=== PATIENT | female | born 1960 | race Two or more races ===

== ENCOUNTER → 2018-07-19 | Outpatient (CLI) | payer BC ==
--- NOTE | 2018-07-19 15:30 | CONS ---
Assessment/Plan Assessment/Plan Hospital Course (Demo Recall) This is a 57-year-old female who had a right total hip arthroplasty more than 20 years ago. She is having groin pain as well as posterior buttock pain. In addition she does have significant lumbar radiculopathy as well as other spine issues complicate the picture. However given her symptoms and radiographs of significant eccentric wear and ostial lysis surrounding the cup as well the greater trochanter I am recommending the patient undergo revision total hip arthroplasty to avoid further wear and possible catastrophic failure in the future. I do have concerns given her recent fevers and chills that infection needs to be ruled out. CBC with differential, ESR, CRP will be ordered. If those results are negative we can proceed with surgery. However those results are positive she will need an aspiration with cell count, culture, alpha defensive. In addition the patient is to bring her previous operative record and the other records she may have as this will assist in her surgery. If there are no signs of infection and the cup is well fixed the first attempt will be made for a simple head liner exchange obtaining the original liner for the cup. If that is not possible secondary to product not being available or inability to determine the cup then the current acetabular component will be explanted with new cup implanted possibly dual mobility given her spinal issues. Follow-up after labs are completed and has old operative records. Consultation Date/Type/Reason Admit Date/Time Date of Consultation: Jul 19, 2018 Reason for Consultation Right hip pain Date/Time of Note DATE: 07/19/18 TIME: 15:18 Hx of Present Illness This is a 57-year-old female presenting to clinic today for right hip pain as well as buttock pain. The hip pain is located in the groin. She had a right total hip done in 1995 in [place]. Patient states she does have some operative records at home that she did not bring with her today. She was doing fine in the hip until the last year. Patient does note some fevers and chills over the last 2 months does not report any other infection. Patient did have an injection to her right greater trochanter bursa last month. Her pain is 78/10 and is described as stabbing and burning. Pain radiates from the groin to the knee. She states she does have numbness and tingling in her legs down to her feet at times. When sitting her leg goes numb she does have history of back problems and deformity as well as 2 surgeries one in 1976 and one in 1989. Patient denies any complications with the initial hip replacement. Denies any dislocation events. Patient can only state that her hip was rubbing [id number] and that is where she needed a hip replacement at age 34. Patient denies fever, chills, shortness of breath, chest pain, nausea/vomiting, constipation, diarrhea, numbness, and tingling. Past Medical History Headaches Visual loss Osteoporosis Past Surgical History Right total hip 1996 Back surgery 1976 and 1989 Hernia surgery x8 Breast surgery Family History Significant Family History: no pertinent family hx Social History Alcohol Use: none Smoking Status: Never smoker Drug Use: none Exam/Review of Systems Exam Vitals Weight: 126 pounds Height: 4 foot 11 inches BMI: 25.4 Temperature: 90.4 Heart Rate: 68 Blood Pressure: 135/70 Respiratory Rate: 12 Exam General: Awake, alert, in no acute distress, pleasant and cooperative Heart: regular rhythm Lungs: breathing comfortably, no tachypnea or dyspnea Musculoskeletal: Well developed female in no apparent distress. Gait demonstrates a Trendelenburg with antalgic components and no short leg component. Standing, the pelvis is not level and supine there is no true leg length discrepancy, tenderness to palpation over the great er enteric bursa. ----- Range of motion: Flexion: 80 Extension: 0 Internal rotation: 30 External rotation: 10 Abduction: 30 Adduction: 10 ----- Sitting there is mild pelvic obliquity. Pain at the extremes of motion of the affected hip. Skin was intact throughout both lower extremities. Sensation intact to light touch in a sural, saphenous, deep peroneal, superficial peroneal, medial and lateral plantar nerve distribution. Neurovascular exam showed 5/5 strength in the abductors, quads, EHL/tibialis anterior/gastroc. Normal and symmetrical pulses were palpated in both the dorsalis pedis and posterior tibial arteries. There is no sign of venous stasis. Imaging Imaging Xrays obtained in clinic today and personally reviewed by myself: AP pelvis and AP/Lat of the right hip demonstrate hip s/p CASIMIRO with hip reduced. Components in good position and alignment. There is significant eccentric wear of the acetabular liner with superior and lateral migration of the femoral head. There is ostial lysis around the acetabulum especially superiorly and inferior medially. No gross loosening of the cup. There is ostial lysis in the greater trochanter especially visible on the lateral view of the hip. No gross loosening of the stem. No fracture. No acute complications. KAYLENE BROWN MD Jul 19, 2018 15:30
--- NOTE | 2018-07-19 22:41 | RADRPT ---
PROCEDURE: XR Right hip and pelvis. CLINICAL INDICATION: Right hip pain. Pelvic pain. Postop. TECHNIQUE: Three views. Frontal pelvis. Frontal and lateral right hip. COMPARISON: No prior studies are available for comparison. FINDINGS: There is no fracture or dislocation. The soft tissues are normal. There is a right hip total arthroplasty which appears satisfactory. Surgical clips are noted in the r ight inguinal region. The left hip is grossly normal. There is no lytic or blastic lesion. The upper pelvis is not completely included on the image. IMPRESSION: 1. Satisfactory postoperative appearance of the right hip. 2. Grossly normal appearance of the left hip. RPTAT: QQ .Rajat Elizondo MD, MD Date Time Electronically viewed and signed by .Rajat Elizondo MD, on 07/19/2018 22:41 .R/
== END | disposition home or self-care (01) ==
LOC: HKI 10:26
PROVIDERS: ATTEND Orthopaedic Surgery Adult Reconstructive Orthopaedic Surgery
DX: M25.551 Pain in right hip (principal); Z96.641 Presence of right artificial hip joint
CPT/HCPCS: 73502; Z7500; G0463

== ENCOUNTER → 2018-07-31 | Outpatient (CLI) | payer BC ==
--- NOTE | 2018-07-31 12:06 | CONS ---
Consult Date/Type/Reason Admit Date/Time Initial Consult Date Date/Time of Note DATE: 07/31/18 TIME: 11:56 Subjective 57-year-old female who follows up today to discuss medical wear and ostial lysis of her right total hip arthroplasty. Last visit ESR, CRP, WBC with differential was ordered. She denies any true symptoms of fevers and chills. She does get feverish and diaphoretic from pain after walking significant distances. She brought in her operative note today. The operative note states surgery was done in August 1998 at [facility]. They state that she had development of dysplasia of the hip. They note significant difficulty with reducing the hip after the total hip arthroplasty and using a -6 head. A 48 mm Ranawat acetabular component was implanted. A lipped liner was used. Femoral stem was a Conchita head stem with a 28 mm cobalt chrome -6 mm head and neck. Patient denies any changes in her symptoms since last visit. Objective Vitals Weight: 126 pound Height: 4 foot 11 inches Temperature: 98.0 Heart Rate: 69 Blood Pressure: 129/58 Respiratory Rate: 12 Exam eneral: Awake, alert, in no acute distress, pleasant and cooperative Heart: regular rhythm Lungs: breathing comfortably, no tachypnea or dyspnea Musculoskeletal: Well developed female in no apparent distress. Gait demonstrates a Trendelenburg with antalgic components and no short leg component. Standing, the pelvis is not level and supine there is no true leg length discrepancy, tenderness to palpation over the g reater enteric bursa. ----- Range of motion: Flexion: 80 Extension: 0 Internal rotation: 30 External rotation: 10 Abduction: 30 Adduction: 10 ----- Sitting there is mild pelvic obliquity. Pain at the extremes of motion of the affected hip. Skin was intact throughout both lower extremities. Sensation intact to light touch in a sural, saphenous, deep peroneal, superficial peroneal, medial and lateral plantar nerve distribution. Neurovascular exam showed 5/5 strength in the abductors, quads, EHL/tibialis anterior/gastroc. Normal and symmetrical pulses were palpated in both the dorsalis pedis and posterior tibial arteries. There is no sign of venous stasis. Results/Medications Results 24 hrs Labs collected on 07/19/2018 ESR: 28 (<30) CRP: 4.1 (<8.0) WBC: 8.2 (3.8-10.8) Hgb: 12.9 (11.7-15.5) Assessment/Plan Hospital Course (Demo Recall) 57-year-old female with ostial lysis mechanical wear right total hip arthroplasty performed almost 20 years ago. She has significant pain and symptoms. At this time am recommending the patient that we proceed with scheduling a revision right total hip arthroplasty. I did spend significant amount of time at least 30 minutes talking with her and her son that the c omplexity of this case. Had a long discussion with the patient that if the appropriate liner and head are still available and the components are well fixed and the hip is stable we will plan for head and liner exchange. Otherwise the patient may need a full revision of the acetabulum which will be challenging secondary to patient's small cup size, lack of bone, history of development of dysplasia of the hip. There are no signs of loosening of the femur on x-ray however it was also discussed the patient that if it is found to be loose intraoperatively that will also need to be revised. Will obtain a preoperative CT scan as well as Judet views of the hip prior to surgery for further evaluation and preoperative planning. We will obtain additional labs including vitamin D levels, total protein, albumin. Follow-up after CT scan Schedule surgery for revision right total hip arthroplasty headliner exchange versus revision acetabular component. KAYLENE BROWN MD Jul 31, 2018 12:05
== END | disposition home or self-care (01) ==
LOC: HKI 10:15
PROVIDERS: ATTEND Orthopaedic Surgery Adult Reconstructive Orthopaedic Surgery
DX: Q65.89 Other specified congenital deformities of hip (principal); Z96.641 Presence of right artificial hip joint
CPT/HCPCS: G0463

== ENCOUNTER → 2018-09-07 | Outpatient (CLI) | payer BC ==
--- NOTE | 2018-09-07 21:52 | CONS ---
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 Last visit ESR, CRP, WBC with differential was ordered and normal. She returns today to review CMP and Vit D levels and CT scan right hip. She denies any true symptoms of fevers and chills. She does get feverish and diaphoretic from pain after walking significant distances. She brought in her operative note today. The operative note states surgery was done in August 1998 at [facility]. They state that she had development of dysplasia of the hip. They note significant difficulty with reducing the hip after the total hip arthroplasty and using a -6 head. A 48 mm Ranawat acetabular component was implanted. A lipped liner was used. Femoral stem was a Conchita head stem with a 28 mm cobalt chrome -6 mm head and neck. Other than increased pain the patient denies any changes in her symptoms since last visit. Objective Exam Exam General: Awake, alert, in no acute distress, pleasant and cooperative Heart: regular rhythm Lungs: breathing comfortably, no tachypnea or dyspnea Musculoskeletal: Well developed female in no apparent distress. Gait demonstrates a Trendelenburg with antalgic components and no short leg component. Standing, the pelvis is not level and supine there is no true leg length discrepancy, tenderness to palpation over the greater enteric bursa. ----- Range of motion: Flexion: 80 Extension: 0 Internal rotation: 30 External rotation: 10 Abduction: 30 Adduction: 10 ----- Sitting there is mild pelvic obliquity. Pain at the extremes of motion of the affected hip. Skin was intact throughout both lower extremities. Sensation intact to light touch in a sural, saphenous, deep peroneal, superficial peroneal, medial and lateral plantar nerve distribution. Neurovascular exam showed 5/5 strength in the abductors, quads, EHL/tibialis anterior/gastroc. Normal and symmetrical pulses were palpated in both the dorsalis pedis and posterior tibial arteries. There is no sign of venous stasis. Results/Medications Results 24 hrs Labs collected on 07/19/2018 ESR: 28 (<30) CRP: 4.1 (<8.0) WBC: 8.2 (3.8-10.8) Hgb: 12.9 (11.7-15.5) Labs collected on 07/31/2018 Albumin: 4.2 (3.6-5.1) Total protein: 6.9 (6.1-8.1) Vitamin D: 29 (30-100) Imaging AP pelvis and 2 today views were obtained today. They show well placed and positioned total hip arthroplasty on the right side. There is significant eccentric wear. There is ostial lysis around the proximal femoral stem as well as the cup. No obvious signs of loosening. CT of the right hip was personally reviewed. Findings likely representing osteolysis involving the acetabular component, proximal femoral stem. There is eccentric wear. Assessment/Plan Hospital Course (Demo Recall) 57-year-old female with osteolysis mechanical wear right total hip arthroplasty performed almost 20 years ago. She has significant pain and symptoms. At this time am recommending the patient that we proceed with scheduling a revision right total hip arthroplasty. I did spend significant amount of time at least 30 minutes talking with her and her son that the complexity of this case. Had a long discussion with the patient that if the appropriate liner and head are still available and the components are well fixed and the hip is stable we will plan for head and liner exchange. Otherwise the patient may need a full revision of the acetabulum which will be challenging secondary to patient's small cup size, lack of bone, history of development of dysplasia of the hip. There are no signs of loosening of the femur on x-ray or CT scan, however it was also discussed the patient that if it is found to be loose intraoperatively that will also need to be revised. KAYLENE BROWN MD September 07, 2018 21:52
--- NOTE | 2018-09-08 11:14 | RADRPT ---
PROCEDURE: XR Pelvis and bilateral hips CLINICAL INDICATION: Pelvic pain. Bilateral hip pain. TECHNIQUE: 3 views of the pelvis and bilateral hips are available for review. COMPARISON: DR BRITT 07/19/2018 FINDINGS: Right hip prosthesis, in anatomic alignment. The left hip is unremarkable. Mild degenerative entheso troy of the lower lumbar spine. The remaining osseous structures are unremarkable. No acute fracture or dislocation. No radiopaque foreign body. The sacroiliac joints are symmetrically unremarkable. Mi ld chronic degenerative osteoarthrosis of the left hip joint space. Numerous surgical clips overlappi ng the right groin region. IMPRESSION: 1. Right hip prosthesis in anatomic alignment, stable. 2. Stable surgical clips in the right inguinal groin region. 3. Otherwise, stable and unremarkable x-ray pelvis series. 4. Degenerative enthesopathy of the lower lumbar spine. RPTAT: HMJB .Mickey Rebolledo MD, Date Time Electronically viewed and signed by .Mickey Rebolledo MD, MD on 09/08/2018 11:13 .B/
== END | disposition home or self-care (01) ==
LOC: HKI 14:51
PROVIDERS: ATTEND Orthopaedic Surgery Adult Reconstructive Orthopaedic Surgery
DX: M89.551 Osteolysis, right thigh (principal); Z96.641 Presence of right artificial hip joint
CPT/HCPCS: 72170; Z7500; G0463

== ENCOUNTER 2018-11-14 07:30 | Inpatient (IN) | payer BC ==
[~2018-11-14] VITALS: Ht 149.9 cm; Wt 59.2 kg
[~2018-11-14 07:30] MED LIST: ASPI-1044 PO; Acetaminophen PO; GABA300C16 PO; OXYC-481 PO
[2018-11-21 11:54] VITALS: Ht 149.9 cm; Wt 59.2 kg
[2018-11-28] VITALS (29 sets, daily range): BP systolic 91–147; BP diastolic 46–79; PULSE 52–82; RESP 13–20
[2018-11-28] MEDS ORDERED: CELECOXIB 200 MG CAP PO SCH (06:00)
[2018-11-28] MEDS ORDERED: TRANEXAMIC ACID 1GM/100ML(PMX) 100 ML AT CLOSURE X1 IVPB ONE (06:00)
[2018-11-28] MEDS ORDERED: ACETAMINOPHEN 1000MG/100ML IV 100 ML IVPB ONE (06:00)
[2018-11-28] MEDS ORDERED: CEFAZOLIN 2 GM/50 ML (PMX) 50 ML (FOR WT < 120 KG) IVPB ONE (06:00)
[2018-11-28] MEDS ORDERED: GABAPENTIN 300 MG CAP PO SCH (06:00)
[2018-11-28] MEDS ORDERED: LANSOPRAZOLE 30 MG CAP PO ONE (06:00)
[2018-11-28] MEDS ORDERED: TRANEXAMIC ACID 1GM/100ML(PMX) 100 ML AT INCISION X1 IVPB ONE (06:00)
[2018-11-28] MEDS ORDERED: PANTOPRAZOLE (EC) 40 MG TAB PO SCH (06:00)
[2018-11-28] MEDS ORDERED: ACETAMINOPHEN 500 MG TAB PO ONE (06:00)
[2018-11-28] MEDS ORDERED: LACTATED RINGER'S 1,000 ML IV SCH (06:00)
[2018-11-28] MEDS ORDERED: ONDANSETRON 4 MG INJ IV ONE (06:00)
[2018-11-28] MEDS ORDERED: TRANEXAMIC ACID 1GM/100ML(PMX) 200 ML ONE (06:50)
--- NOTE | 2018-11-28 07:15 | HPN ---
Date/Time of Note Date/Time of Note DATE: 11/28/18 TIME: 07:14 Interval H&P Admission Note Pt. seen H&P reviewed: No system changes Patient denies fever, chills, shortness of breath, chest pain, nausea/vomiting, constipation, diarrhea, numbness, and tingling. MUSCULOSKELETAL: Right lower extremity Skin intact. Well-healed posteriolateral hip incision Sensation is decreased to light touch to the superficial peroneal nerve dis tribution. Sensation intact to light touch in a sural, saphenous, deep peroneal, medial and lateral plantar nerve distribution. Motor is intact, patient able to dorsiflex and plantarflex ankle and extend and flex great toe. Dorsalis Pedis pulse +2, Brisk capillary refill. Compartments are soft. Calves non-tender to palpation bilaterally. KAYLENE BROWN MD Nov 28, 2018 07:15
--- NOTE | 2018-11-28 07:29 | PREAC ---
Date/Time of Note Date/Time of Note DATE: 11/28/18 TIME: 07:27 Anesthesia Eval and Record Evaluation Time Pre-Procedure Interview DATE: 11/28/18 TIME: 07:27 Age 58 Sex female NPO: 8 hrs Preoperative diagnosis Right Hip Pain and OA Planned procedure Revision Right Total Hip Replacement Past Medical History Past Medical History: Includes Cardio: Dyslipidemia Musculoskeletal: Osteoarthritis Surgery & Anesthesia Issues No known issue Meds Anticoagulation: No Beta Colt within 24 hr: No Reason Beta Colt not given: Pt. not on B-Colt No Active Prescriptions or Reported Meds Current Medications Lactated Ringer's 1,000 ml @ 25 mls/hr Q24H IV Last administered on 11/28/18at 06:29; Admin Dose 25 MLS/HR; Start 11/28/18 at 06:00; Stop 11/28/18 at 23:00 Meds reviewed: Yes Allergies Coded Allergies: vancomycin (Verified Adverse Reaction, Unknown, SUAD SYNDROME, 11/27/18) Allergies Reviewed: Yes Labs/Studies Labs Reviewed: Reviewed by anesthesiologist Blood Bank Test 11/28/18 06:13 Antibody Screen NEGATIVE Blood Product Summary Counts Blood Type O POSITIVE Crossmatch Red Blood Cells test: N/A Studies: ECG (NSR), CXR (no active pulmonary Disease.) Pre-procedure Exam Last vitals Vital Signs Date Temp Pulse Resp B/P (MAP) Pulse Ox O2 O2 Flow FiO2 Time Delivery Rate 11/28/18 97.2 62 18 147/79 98 Room Air 06:46 (101) Airway: Adequate mouth opening, Adequate thyromental dist Mallampati: Mallampati II Teeth: Normal Lung: Normal Heart: Normal ASA Physical Status ASA physical status: 2 Emergency: None Planned Anesthetic General/MAC: ETT Neuraxial: Spinal Nerve block: Other (Right Fascia Iliaca Block.) Planned Pain Management Sub-arachniod narcotics, Single shot nerve block, Parenteral pain med Pre-operative Attestations Prior to commencing anesthesia and surgery, the patient was re-evaluated, there was verification of: *The patient's identity *The results of appropriate recent lab work and preoperative vital signs *The above evaluation not changing prior to induction *Anesthetic plan, risk benefits, alternative and complications discussed with patient/family; questions answered; patient/family understands, accepts and wish es to proceed. JACKSON PARMAR MD Nov 28, 2018 07:29
[2018-11-28] MEDS ORDERED: PROPOFOL 20 ML ONE (07:40)
[2018-11-28] MEDS ORDERED: MIDAZOLAM 1 MG/ML 2 ML INJ ONE (07:40)
[2018-11-28] MEDS ORDERED: ROCURONIUM 50 MG INJ ONE (07:40)
[2018-11-28] MEDS ORDERED: SEVOFLURANE 15 MIN ONE (07:40)
[2018-11-28] MEDS ORDERED: morphine SULFATE/PF (10 MG/10 ML) INJ ONE (07:40)
[2018-11-28] MEDS ORDERED: ROPIVACAINE 0.5 % 30 ML VIAL ONE (07:40)
[2018-11-28] MEDS ORDERED: CEFAZOLIN 1 GM INJ ONE (07:40)
[2018-11-28] MEDS ORDERED: PHENYLephrine (100 MCG/ML) 10ML SYG ONE (08:33)
[2018-11-28] MEDS ORDERED: EPHEDrine 25 MG/5 ML SYG ONE (08:33)
[2018-11-28] MEDS ORDERED: POLYMYXIN/BACITRACIN 1L IRRIG ONE (10:59)
[2018-11-28] MEDS ORDERED: DIPHENHYDRAMINE 50 MG INJ IV PRN ×2 (11:30→13:00)
[2018-11-28] MEDS ORDERED: METOCLOPRAMIDE 10 MG INJ IV PRN (11:30)
[2018-11-28] MEDS ORDERED: EPHEDrine 25 MG/5 ML SYG IV PRN (11:30)
[2018-11-28] MEDS ORDERED: OXYCODONE/ACETAMINOPHEN (5/325) TAB PO PRN ×2 (11:30)
[2018-11-28] MEDS ORDERED: HYDROmorphONE 1 MG/5 ML IV SYRINGE IV PRN ×3 (11:30)
[2018-11-28] MEDS ORDERED: LABETALOL HCL 20MG INJ IV PRN (11:30)
[2018-11-28] MEDS ORDERED: ONDANSETRON 4 MG INJ IV PRN (11:30)
[2018-11-28] MEDS ORDERED: hydrALAzine 20 MG INJ IV PRN (11:30)
[2018-11-28] MEDS ORDERED: MEPERIDINE 25 MG INJ IV PRN (11:30)
[2018-11-28] MEDS ORDERED: FENTAnyl 50 MCG/ML VIAL IV PRN ×3 (11:30)
[2018-11-28] MEDS ORDERED: KETOROLAC 30 MG INJ ONE (11:32)
[2018-11-28] MEDS ORDERED: DEXAMETHASONE 4 MG/ML 5 ML INJ ONE (11:32)
[2018-11-28] MEDS ORDERED: SUGAMMADEX SODIUM 200 MG/2 ML VIAL IV ONE (11:32)
[2018-11-28] MEDS ORDERED: ONDANSETRON 4 MG INJ ONE (11:32)
[2018-11-28] MEDS ORDERED: METOCLOPRAMIDE 10 MG INJ ONE (11:32)
--- NOTE | 2018-11-28 12:30 | PAC ---
Date/Time of Note Date/Time of Note DATE: 11/28/18 TIME: 12:30 Post-Anesthesia Notes Post-Anesthesia Note Last documented vital signs Vital Signs Date Temp Pulse Resp B/P (MAP) Pulse Ox O2 O2 Flow FiO2 Time Delivery Rate 11/28/18 98.1 62 18 147/79 98 Room Air 12:26 (101) Activity: WNL Respiratory function: WNL Cardiovascular function: WNL Mental status: Baseline Pain reasonably controlled: Yes Hydration appropriate: Yes Nausea/Vomiting absent: Yes JACKSON PARMAR MD Nov 28, 2018 12:30
[2018-11-28] MEDS: LACTATED RINGER'S 1,000 ML IV SCH ×2 (12:35→20:45)
[2018-11-28] MEDS ORDERED: NALOXONE (0.4 MG/ML) INJ IV PRN (13:00)
[2018-11-28] MEDS ORDERED: NA PHOSPHATE/BIPHOS 133 ML ENEMA PR PRN (13:00)
[2018-11-28] MEDS ORDERED: BETHANECHOL 25 MG TAB PO PRN (13:00)
[2018-11-28] MEDS ORDERED: DOCUSATE SODIUM 100 MG CAP PO ONE (13:00)
[2018-11-28] MEDS ORDERED: oxyCODONE 5 MG TAB PO PRN ×3 (13:00)
[2018-11-28] MEDS ORDERED: BISACODYL 10 MG SUPP PR PRN (13:00)
[2018-11-28] MEDS ORDERED: NACL 0.9% 3 ML SYG IV SCH (13:00)
[2018-11-28] MEDS ORDERED: MAGNESIUM HYDROXIDE 30ML CUP PO PRN (13:00)
[2018-11-28] MEDS ORDERED: SENNA/DOCUSATE NA (8.6MG/50MG) TAB PO PRN (13:00)
[2018-11-28] MEDS ORDERED: HYDROmorphONE 1 MG/ML SYG IV PRN (13:00)
[2018-11-28] MEDS: CEFAZOLIN 2 GM/50 ML (PMX) 50 ML IVPB SCH ×2 (13:08→20:44)
--- NOTE | 2018-11-28 13:40 | CONS ---
Assessment/Plan Assessment/Plan Hospital Course (Demo Recall) SUBJECTIVE: Status post right hip revision surgery. No acute distress. OBJECTIVE: Vital signs-see below PHYSICAL EXAM: Constitutional: Adequately built,not in acute distress. HEENT: Head atraumatic and normocephalic. Eyes: Extraocular muscles intact. Anicteric sclerae. Pupils equal bilaterally, reactive to light. NECK: Supple without lymph node. CHEST: Clear and good breath sounds equally. No wheezing. No rhonchi. HEART: S1, S2. Regular rate and rhythm. ABDOMEN: Soft/non tender with no rebound tenderness. Bowel sounds were present. EXTREMITIES: Intact postop dressing on right hip. No bruising/hematoma noted. Pulses palpable. No cyanosis, clubbing or edema. NEUROLOGIC: Alert and oriented x3. No focal deficit. No sensory deficit. PSYCHOSOCIAL: No signs of depression. INTEGUMENTARY: No open wounds. ASSESSMENT AND PLAN:58 yo F admitted followed by revision right hip replacement. Status post revision right hip replacement -Postoperative weightbearing, anticoagulation per orthopedics team. Dyslipidemia -obtain home meds and will continue -lipid panel DVT prophylaxis: Aspirin twice a day per orthopedic PUD prophylaxis: PPI Thank you for allowing us to partake in the care of this pleasant lady. Patient was seen in collaboration with Dr. Edouard. Consultation Date/Type/Reason Admit Date/Time Nov 28, 2018 at 05:39 Type of Consult Hospitalist medicine Reason for Consultation Postoperative medical management Requesting Provider: KAYLENE BROWN MD Date/Time of Note DATE: 11/28/18 TIME: 13:37 Hx of Present Illness 58-year-old female with a history of right hip placement about 20 years ago at [facility], brought in for revision right hip replacement. Hospitalist consultation was requested postoperatively. Patient did undergo revision right total hip replacement surgery with under general anesthesia. Patient was seen in recovery room. Denies any chest pain, palpitation, shortness of breath, nausea, vomiting, abdominal pain, dizziness, numbness, fever, chills or other constitutional symptoms. She is currently in a sleeping mode.. Vital signs stable. A 12 point review of system was assessed and is negative other than what is mentioned in the HPI. Past Medical History See HPI Medications Current Medications Lactated Ringer's 1,000 ml @ 25 mls/hr Q24H IV Last administered on 11/28/18at 06:29; Admin Dose 25 MLS/HR; Start 11/28/18 at 06:00; Stop 11/28/18 at 23:00 Hydromorphone HCl (Dilaudid) 0.2 mg PACU PRN IV MILD PAIN 1-3; Start 11/28/18 at 11:30; Stop 11/28/18 at 16:00 Hydromorphone HCl (Dilaudid) 0.4 mg PACU PRN IV MOD PAIN 4-6; Start 11/28/18 at 11:30; Stop 11/28/18 at 16:00 Hydromorphone HCl (Dilaudid) 0.6 mg PACU PRN IV SEVERE PAIN 7-10; Start 11/28/18 at 11:30; Stop 11/28/18 at 16:00 Fentanyl (Sublimaze) 25 mcg PACU ORDER PRN IV MILD PAIN 1-3; Start 11/28/18 at 11:30; Stop 11/28/18 at 16:00 Fentanyl (Sublimaze) 50 mcg PACU ORDER PRN IV MOD PAIN 4-6; Start 11/28/18 at 11:30; Stop 11/28/18 at 16:00 Fentanyl (Sublimaze) 75 mcg PACU ORDER PRN IV SEVERE PAIN 7-10; Start 11/28/18 at 11:30; Stop 11/28/18 at 16:00 Oxycodone/ Acetaminophen (Percocet (5/ 325)) 1 tab PACU ORDER PRN PO .PAIN 1-5; Start 11/28/18 at 11:30; Stop 11/28/18 at 16:00 Oxycodone/ Acetaminophen (Percocet (5/ 325)) 2 tab PACU ORDER PRN PO .PAIN 6-10; Start 11/28/18 at 11:30; Stop 11/28/18 at 16:00 Ondansetron HCl (Zofran Inj) 4 mg PACU ORDER PRN IV NAUSEA/VOMITING; Start 11/28/18 at 11:30; Stop 11/28/18 at 16:00 Metoclopramide HCl (Reglan) 10 mg PACU ORDER PRN IV NAUSEA/VOMITING; Start 11/28/18 at 11:30; Stop 11/28/18 at 16:00 Labetalol HCl (Labetalol) 5 mg PACU ORDER PRN IV HIGH BLOOD PRESSURE; Start 11/28/18 at 11:30; Stop 11/28/18 at 16:00 Hydralazine HCl (Apresoline) 5 mg PACU ORDER PRN IV HIGH BLOOD PRESSURE; Start 11/28/18 at 11:30; Stop 11/28/18 at 16:00 Ephedrine Sulfate 5 mg PACU ORDER PRN IV BLOOD PRESSURE SUPPORT; Start 11/28/18 at 11:30; Stop 11/28/18 at 16:00 Meperidine HCl (Demerol) 25 mg PACU ORDER PRN IV .RIGORS; Start 11/28/18 at 11:30; Stop 11/28/18 at 16:00 Diphenhydramine HCl (Benadryl) 25 mg PACU ORDER PRN IV .PRURITUS; Start 11/28/18 at 11:30; Stop 11/28/18 at 16:00 Lactated Ringer's 1,000 ml @ 80 mls/hr [id number] IV ; Start 11/28/18 at 12:35 Oxycodone HCl (Roxicodone) 15 mg Q4H PRN PO .PAIN; Start 11/28/18 at 13:00 Oxycodone HCl (Roxicodone) 10 mg Q4H PRN PO .PAIN; Start 11/28/18 at 13:00 Oxycodone HCl (Roxicodone) 5 mg Q4H PRN PO .PAIN; Start 11/28/18 at 13:00 Hydromorphone HCl (Dilaudid) 1 mg Q3H PRN IV .BREAKTHROUGH PAIN; Start 11/28/18 at 13:00 Acetaminophen (Tylenol Tab) 1,000 mg Q8 PO ; Start 11/28/18 at 14:00 Ondansetron HCl (Zofran Inj) 4 mg Q4H PRN IV NAUSEA/VOMITING; Start 11/29/18 at 13:00 Cefazolin Sodium/ Dextrose 50 ml @ 100 mls/hr Q8H IVPB Last administered on 11/28/18at 13:08; Admin Dose 100 MLS/HR; Start 11/28/18 at 13:00; Stop 11/29/18 at 05:29 Gabapentin (Neurontin) 300 mg QHS PO ; Start 11/28/18 at 21:00 Pantoprazole (Protonix Tab) 40 mg DAILY@06 PO ; Start 11/29/18 at 06:00 Docusate Sodium (Colace) 200 mg BID PO ; Start 11/29/18 at 09:00; Stop 12/01/18 at 21:01 Simethicone (Mylicon) 80 mg TID PRN PO .GAS; Start 11/28/18 at 13:00 Senna/Docusate Sodium (Senokot-S) 2 tab BID PRN PO .CONSTIPATION; Start 11/28/18 at 13:00 Magnesium Hydroxide (Milk Of Mag) 30 ml HS PRN PO .CONSTIPATION; Start 11/28/18 at 13:00 Bisacodyl (Dulcolax Supp) 10 mg DAILY PRN FL .CONSTIPATION; Start 11/28/18 at 13:00 Sodium Biphosphate/ Sodium Phosphate (Fleet Enema) 133 ml DAILY PRN FL .CONSTIPATION; Start 11/28/18 at 13:00 Diphenhydramine HCl (Benadryl) 25 mg Q4H PRN IV .ITCHING; Start 11/28/18 at 13:00 Ketorolac Tromethamine (Toradol) 15 mg Q6H PRN IV .PAIN; Start 11/28/18 at 13:00 Naloxone HCl (Narcan) 0.2 mg Q2M PRN IV .RESP RATE; Start 11/28/18 at 13:00 IV Flush (NS 3 ml) 3 ml per protocol IV ; Start 11/28/18 at 13:00 Bethanechol Chloride (Urecholine) 25 mg URINARY CATH D/C PRN PO UNABLE TO VOID; Start 11/28/18 at 13:00 Aspirin (Halfprin) 81 mg BID PO ; Start 11/29/18 at 09:00 Allergies: Coded Allergies: vancomycin (Verified Adverse Reaction, Unknown, SUAD SYNDROME, 11/27/18) Past Surgical History See HPI Social History Denied history of alcohol, smoking or illicit drug use. Smoking Status: Never smoker Exam/Review of Systems Exam Vitals Vital Signs Date Temp Pulse Resp B/P (MAP) Pulse Ox O2 O2 Flow FiO2 Time Delivery Rate 11/28/18 98.9 12:33 11/28/18 62 18 147/79 98 Room Air 06:46 (101) Medications Medication Current Medications Lactated Ringer's 1,000 ml @ 25 mls/hr Q24H IV Last administered on 11/28/18at 06:29; Admin Dose 25 MLS/HR; Start 11/28/18 at 06:00; Stop 11/28/18 at 23:00 Hydromorphone HCl (Dilaudid) 0.2 mg PACU PRN IV MILD PAIN 1-3; Start 11/28/18 at 11:30; Stop 11/28/18 at 16:00 Hydromorphone HCl (Dilaudid) 0.4 mg PACU PRN IV MOD PAIN 4-6; Start 11/28/18 at 11:30; Stop 11/28/18 at 16:00 Hydromorphone HCl (Dilaudid) 0.6 mg PACU PRN IV SEVERE PAIN 7-10; Start 11/28/18 at 11:30; Stop 11/28/18 at 16:00 Fentanyl (Sublimaze) 25 mcg PACU ORDER PRN IV MILD PAIN 1-3; Start 11/28/18 at 11:30; Stop 11/28/18 at 16:00 Fentanyl (Sublimaze) 50 mcg PACU ORDER PRN IV MOD PAIN 4-6; Start 11/28/18 at 11:30; Stop 11/28/18 at 16:00 Fentanyl (Sublimaze) 75 mcg PACU ORDER PRN IV SEVERE PAIN 7-10; Start 11/28/18 at 11:30; Stop 11/28/18 at 16:00 Oxycodone/ Acetaminophen (Percocet (5/ 325)) 1 tab PACU ORDER PRN PO .PAIN 1-5; Start 11/28/18 at 11:30; Stop 11/28/18 at 16:00 Oxycodone/ Acetaminophen (Percocet (5/ 325)) 2 tab PACU ORDER PRN PO .PAIN 6-10; Start 11/28/18 at 11:30; Stop 11/28/18 at 16:00 Ondansetron HCl (Zofran Inj) 4 mg PACU ORDER PRN IV NAUSEA/VOMITING; Start 11/28/18 at 11:30; Stop 11/28/18 at 16:00 Metoclopramide HCl (Reglan) 10 mg PACU ORDER PRN IV NAUSEA/VOMITING; Start 11/28/18 at 11:30; Stop 11/28/18 at 16:00 Labetalol HCl (Labetalol) 5 mg PACU ORDER PRN IV HIGH BLOOD PRESSURE; Start 11/28/18 at 11:30; Stop 11/28/18 at 16:00 Hydralazine HCl (Apresoline) 5 mg PACU ORDER PRN IV HIGH BLOOD PRESSURE; Start 11/28/18 at 11:30; Stop 11/28/18 at 16:00 Ephedrine Sulfate 5 mg PACU ORDER PRN IV BLOOD PRESSURE SUPPORT; Start 11/28/18 at 11:30; Stop 11/28/18 at 16:00 Meperidine HCl (Demerol) 25 mg PACU ORDER PRN IV .RIGORS; Start 11/28/18 at 11:30; Stop 11/28/18 at 16:00 Diphenhydramine HCl (Benadryl) 25 mg PACU ORDER PRN IV .PRURITUS; Start 11/28/18 at 11:30; Stop 11/28/18 at 16:00 Lactated Ringer's 1,000 ml @ 80 mls/hr [id number] IV ; Start 11/28/18 at 12:35 Oxycodone HCl (Roxicodone) 15 mg Q4H PRN PO .PAIN; Start 11/28/18 at 13:00 Oxycodone HCl (Roxicodone) 10 mg Q4H PRN PO .PAIN; Start 11/28/18 at 13:00 Oxycodone HCl (Roxicodone) 5 mg Q4H PRN PO .PAIN; Start 11/28/18 at 13:00 Hydromorphone HCl (Dilaudid) 1 mg Q3H PRN IV .BREAKTHROUGH PAIN; Start 11/28/18 at 13:00 Acetaminophen (Tylenol Tab) 1,000 mg Q8 PO ; Start 11/28/18 at 14:00 Ondansetron HCl (Zofran Inj) 4 mg Q4H PRN IV NAUSEA/VOMITING; Start 11/29/18 at 13:00 Cefazolin Sodium/ Dextrose 50 ml @ 100 mls/hr Q8H IVPB Last administered on 11/28/18at 13:08; Admin Dose 100 MLS/HR; Start 11/28/18 at 13:00; Stop 11/29/18 at 05:29 Gabapentin (Neurontin) 300 mg QHS PO ; Start 11/28/18 at 21:00 Pantoprazole (Protonix Tab) 40 mg DAILY@06 PO ; Start 11/29/18 at 06:00 Docusate Sodium (Colace) 200 mg BID PO ; Start 11/29/18 at 09:00; Stop 12/01/18 at 21:01 Simethicone (Mylicon) 80 mg TID PRN PO .GAS; Start 11/28/18 at 13:00 Senna/Docusate Sodium (Senokot-S) 2 tab BID PRN PO .CONSTIPATION; Start 11/28/18 at 13:00 Magnesium Hydroxide (Milk Of Mag) 30 ml HS PRN PO .CONSTIPATION; Start 11/28/18 at 13:00 Bisacodyl (Dulcolax Supp) 10 mg DAILY PRN FL .CONSTIPATION; Start 11/28/18 at 13:00 Sodium Biphosphate/ Sodium Phosphate (Fleet Enema) 133 ml DAILY PRN FL .CONSTIPATION; Start 11/28/18 at 13:00 Diphenhydramine HCl (Benadryl) 25 mg Q4H PRN IV .ITCHING; Start 11/28/18 at 13:00 Ketorolac Tromethamine (Toradol) 15 mg Q6H PRN IV .PAIN; Start 11/28/18 at 13:00 Naloxone HCl (Narcan) 0.2 mg Q2M PRN IV .RESP RATE; Start 11/28/18 at 13:00 IV Flush (NS 3 ml) 3 ml per protocol IV ; Start 11/28/18 at 13:00 Bethanechol Chloride (Urecholine) 25 mg URINARY CATH D/C PRN PO UNABLE TO VOID; Start 11/28/18 at 13:00 Aspirin (Halfprin) 81 mg BID PO ; Start 11/29/18 at 09:00 BEKAH ARNOLD NP Nov 28, 2018 13:40
[2018-11-28] MEDS: ACETAMINOPHEN 500 MG TAB PO SCH ×2 (14:00→20:45)
--- NOTE | 2018-11-28 14:28 | OPR ---
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 Postoperative Diagnosis As above Operation/Procedure Performed Revision right total hip arthroplasty exchange of head and liner Surgeon see signature line [employer] Warmer Jaqueline Alfonso Anesthesia Type: general Estimated Blood Loss: 150 - 200 ml's Transfusion none Specimen Synovial fluid sent for cell count, aerobic, anaerobic, fungal, AFB 3 tissue sample sent for aerobic, anaerobic, fungal, AFB Grafts/Implants Explant: Biomet Acetabular Liner: RingLoc Hip system lipped liner Acetabular RingLoc rin mm Femoral head: 28 -6mm CoCr Implant: Josr Biomet Acetabular RingLoc rin mm Acetabular liner: RingLoc Hip System +3 Hi wall E1 antioxidant infused Femoral head: 32 -6mm ceramic with titanium sleeve Montage: ~5 mL Complications none Pt Condition Post Procedure: stable Disposition: PACU Procedure Description PREOP DIAGNOSIS: 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 SURGICAL PROCEDURE: Revision total hip arthroplasty head and liner exchange. 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 She was doing well with no complications until the last year or so. She began to have significant pain in her groin and leg and hip area. Denied any fevers or chills. As mentioned before she had severe scoliosis and had multiple instrumentation to the child with his mentation subsequently removed. Infection work-up was completed and was negative. X-rays demonstrated significant eccentric wear with periacetabular ostial lysis and some ostial lysis around the femoral stem. There was concern that there was possible loosening of acetabular component given the amount of pain as well as the significant ostial lysis. CT scan was obtained at the patient's presentation which did not show obvious signs of loosening. Given the amount of ostial lysis and polyethylene wear I recommended the patient that she undergo a revision right total hip arthroplasty. It was discussed the patient at length that the stability and ingrowth of the components will be tested during surgery. The operative note was obtained. The patient had a Conchita-Head femoral stem and a Ranawat cup. These implants were fortunately still available for head and liner exchange. INFORMED CONSENT: The operative procedure was explained using diagrams and/or three-dimensional models. The rehabilitation, the potential risks, benefits and alternatives were discussed at length. Specific risks discussed included but were not limited to need to remove some or all components, excessive blood loss and the need for transfusion and therefore the risk of transmissible disease or transfusion reaction, deep infection and the potential need for repetitive debridements, implant removal, long-term antibiotic therapy, possibly requiring deep venous access, leg-length discrepancy, dislocation, possibly recurrent, with the need for closed versus open reduction, bracing, femoral or acetabular fracture and the need for further surgery for fixation, neurovascular injury with temporary or permanent numbness, tingling, weakness or paralysis, deep venous thrombosis, pulmonary embolism and , persistent pain, weakness, or limp, late aseptic loosening and the need for revision, polyethylene wear-induced osteolysis and related problems, and finally, a wide variety of unanticipated medical problems. The opportunity to ask questions and address any concerns was provided. The patient wished to proceed. FINDINGS: Healthy tissues. No signs of infection. Clear synovial fluid. No significant inflammation from polyethylene wear. Observation of the polyethylene demonstrates significant wear of the poly superior and posteriorly. The acetabular and femoral component well fixed. SURGERY IN DETAIL: The patient was taken into the Operating Room and placed supine on the operating table. Preoperatively, they were administered Ancef. They were administered general anesthesia by the Anesthesia Department. The patient was placed on an [facility] Lateral Positioner in a left lateral decubitus position with the right hip superior. An axillary roll was placed, all pressure points were confirmed padded. The right hip region was prepped and draped in sterile fashion. A surgical pause was performed, correctly identifying the patient's name, the correct medical record number, the correct diagnosis, correct surgical procedure, and the correct extremity. 1g of tranexamic acid was dosed at the time of incision. A posterolateral skin incision, approximately 15-20 cm in length was made, centered over the greater trochanter, skin and subcutaneous tissue sharply d issected. Deep fascial layer was identified and incised in line with the skin incision. Gluteus medius was retracted anteriorly. The short external rotators and capsule were scarred over the proximal femur. There were no clear tissue planes. At this time a spinal needle was used to aspirate fluid to send for cell count, aerobic, anaerobic, fungal, AFB cultures. The synovial fluid was clear. At this time the scarred in short external rotators and capsule was taken down subperiosteally with care. There was significant thickening and scar of the capsule encasing the femoral neck and head. This was carefully excised to allow mobilization. Synovium was sent for aerobic, anaerobic, fungal, AFB culture. Soft tissue and scar was cleared 270 degrees around the femoral head and acetabulum. At this time a bone hook was used to assist in dislocation of the total hip arthroplasty. Bone tamp was used to disengage the G[place]ora taper of the femoral head to the trunnion. This was done successfully. There is minimal to no damage of the trunnion. There is no corrosion. A Adapx osteotome was then used to elevate soft tissue above the superior acetabulum to make room for the femoral neck prosthesis. Evaluation of the acetabulum significant polyethylene wear. The polyethylene was intact. There is no articulating metal components. At this time the soft tissue was cleared around the polyethylene liner. This was a lipped liner as was dictated in the original operative note. An acetabular screw was first used to attempt to remove the polyp. This failed. Therefore 1/4 inch osteotome was used to split the poly-and a half. The polyethylene was then successfully removed with minimal to no damage of the acetabular shell. The locking ring was then removed. At this time more soft tissues clear on the acetabulum to assess the bony ingrowth. The cup was stable with no signs of loosening. It did not move while using an osteotome to remove the polyethylene. Did not move while trying to physically move the cup. Removing the acetabular shell moved entire pelvis as a single unit. Soft tissue from the screw holes were sent for aerobic, anaerobic, fungal, AFB culture. Surrounding acetabular tissue was also sent for culture. Thorough irrigation and debridement of the surrounding tissues and scar was performed. There was ostial lysis behind the cup and montage bone graft was placed through the screw holes to backfill some of the voids behind the cup. A new locking ring was placed in the acetabular groove. The appropriately sized polyethylene for a 48 mm cup was impacted with the elevated portion posterior and slightly inferior. A 32mm -6mm femoral head was inserted and the hip was reduced. Range of motion and stability were quite good, including forward flexion to greater than 90 degrees, internal rotation greater than 80 degrees at 90 degrees flexion, internal rotation greater than 80 degrees with the hip adducted and at 45 degrees of flexion. External Rotation was also tested, and was stable with no impingement or instability at full extension and 30 degrees external rotation. Ranawat sign was 55 degrees. Intraoperative x-ray revealed the hip to have satisfactory position of all components. The hip was dislocated in controlled manner using a bone hook and the trial components removed. Local anesthetic was injected periarticular. On the femoral side. A 32 -6mm ceramic head with a titanium sleeve was inserted onto the taper. The hip was reduced. One final time range of motion, stability, and soft tissue tension were satisfactory. The wound was thoroughly irrigated. 1g of tranexamic acid was dosed. The scarred external rotators and capsule were repaired approximately to soft tissue. The deep fascial layer was closed with 1 Vicryl in a [id number], interrupted fashion, deep subcutaneous tissues irrigated and closed with 0 Vicryl interrupted fashion, subcutaneous tissues irrigated, closed with 2-0 Vicryl in an inverted, interrupted fashion. The skin was closed with john. A sterile dressing was applied, abduction pillow was placed between the legs, and the patient was transferred to a supine position. Postoperative clinical leg lengths, rotation of limb were neutral and symmetric. All Counts were correct x2 DISPOSITION: Patient transferred to PACU in stable condition. The patient will be weight bearing as tolerated on the operative extremity. PT will begin POD#0 if available. Posterior hip precautions for 3 months with an abduction pillow. Postoperative AP pelvis will be ordered in PACU. Bilateral knee high SCDs will be worn while admitted. ASA 81mg BID will be given for DVT prophylaxis for 6 weeks. Pain will be controlled with medication. The patient will follow up in clinic in approximately 2 weeks. Explant: Biomet Acetabular Liner: RingLoc Hip system lipped liner Acetabular RingLoc rin mm Femoral head: 28 -6mm CoCr Implant: Josr Biomet Acetabular RingLoc rin mm Acetabular liner: RingLoc Hip System +3 Hi wall E1 antioxidant infused Femoral head: 32 -6mm ceramic with titanium sleeve Montage: ~5 mL KAYLENE BROWN MD Nov 28, 2018 14:27
[2018-11-28] MEDS: GABAPENTIN 300 MG CAP PO SCH (20:44)
[2018-11-29] VITALS (7 sets, daily range): BP systolic 99–120; BP diastolic 45–75; PULSE 60–76; RESP 18
[2018-11-29] MEDS: CEFAZOLIN 2 GM/50 ML (PMX) 50 ML IVPB SCH (05:04)
[2018-11-29] MEDS: PANTOPRAZOLE (EC) 40 MG TAB PO SCH (05:05)
[2018-11-29] MEDS: ACETAMINOPHEN 500 MG TAB PO SCH ×3 (05:05→20:37)
--- NOTE | 2018-11-29 07:45 | PN ---
Date/Time of Note Date/Time of Note DATE: 11/29/18 TIME: 07:42 Assessment/Plan Lines/Catheters IV Catheter Type (from Nrsg): Peripheral IV Crooks in Place (from Nrsg): No Assessment/Plan Chief Complaint/Hosp Course POD#1 s/p revision right CASIMIRO head and liner exchange -Intraoperative cultures pending -Post op H&H stable -PT/OT. Posterior Hip Precautions -Joints pain control protocol. Nonnarcotic pain medication prior to any narcotic pain medication -DVT prophylaxis: SCD's, ASA 81 mg twice daily x6 weeks -Weight bearing status: as tolerated -Post-op XR ordered -Abx: 24h vanc/ancef -Diet: ADAT -Crooks: Discontinue -Discharge planning consult Planned Discharge Date: Today Discharge to home with home health Subjective 24 Hr Interval Summary Patient doing well No acute events overnight. Patient was dizzy yesterday with physical therapy. Pain is well controlled Exam/Review of Systems Vital Signs Vitals Vital Signs Date Temp Pulse Resp B/P (MAP) Pulse Ox O2 O2 Flow FiO2 Time Delivery Rate 11/29/18 98.1 60 18 120/56 94 00:05 (77) 11/28/18 Nasal 2.0 18:30 Cannula Intake and Output 11/28/18 11/28/18 11/29/18 1515:00 23:00 07:00 IntakeIntake Total 3300 ml 530 ml 690 ml OutputOutput Total 850 ml 600 ml BalanceBalance 2450 ml 530 ml 90 ml Exam Free Text/Dictation Right lower extremity: Dressing: clean, dry, and intact, no erythema Sensation is decreased to light touch over the superficial peroneal nerve distribution which is the patient's baseline. Sensation intact to light touch in a sural, saphenous, deep peroneal, medial and lateral plantar nerve distribution. Motor is intact, patient able to dorsiflex and plantarflex ankle and extend and flex great toe. Dorsalis Pedis pulse +2, Brisk capillary refill. Compartments are soft. Calves non-tender to palpation bilaterally. Results Result Diagram: 11/29/[id number] KAYLENE BROWN MD Nov 29, 2018 07:45
--- NOTE | 2018-11-29 07:51 | DS ---
Date/Time of Note Date/Time of Note DATE: 11/29/18 TIME: 07:50 Discharge Summary Admission/Discharge Info Admit Date/Time Nov 28, 2018 at 13:08 Discharge Date/Time Patient Condition: Good Hospital Course POD#1 s/p revision right CASIMIRO head and liner exchange. Patient's pain is well controlled. Patient is medically and surgically stable. She is tolerating diet. -Intraoperative cultures pending -Post op H&H stable -PT/OT. Posterior Hip Precautions -Joints pain control protocol. Nonnarcotic pain medication prior to any narcotic pain medication -DVT prophylaxis: SCD's, ASA 81 mg twice daily x6 weeks -Weight bearing status: as tolerated -Post-op XR ordered -Abx: 24h vanc/ancef -Diet: ADAT -Crooks: Discontinue -Discharge planning consult Planned Discharge Date: Today Discharge to home with home health Primary Care Provider Not On Staff Doctor Time spent on discharge: < 30 minutes Pending Labs Laboratory Tests Test 11/29/18 04:40 11/29/18 06:00 11/29/18 07:19 White Blood Count 14.0 10^3/ul (4.8-10.8) Red Blood Count 3.54 10^6/ul (4.20-5.40) Hemoglobin 10.3 g/dl (12.0-16.0) Hematocrit 31.6 % (37.0-47.0) Mean Corpuscular 89.3 Volume fl (82.0-101.0) Mean Corpuscular 29.1 pg (29.0-33.0) Hemoglobin Mean Corpuscular 32.6 Hemoglobin Concent g/dl (32.0-37.0) Red Cell 12.9 % (11.5-14.5) Distribution Width Platelet Count 162 10^3/UL (140-415) Mean Platelet 10.6 fl (7.4-10.4) Volume Immature 0.600 Granulocytes % % (0.001-0.429) Neutrophils % 84.8 % (39.0-77.0) Lymphocytes % 8.6 % (15.0-51.0) Monocytes % 5.9 % (0.0-11.0) Eosinophils % 0.0 % (0.0-7.0) Basophils % 0.1 % (0.0-2.0) Nucleated Red Blood 0.0 Cells % /100WBC (0.0-0.0) Immature 0.080 Granulocytes # 10^3/ul (0.0-0.031) Neutrophils # 11.9 10^3/ul (1.6-7.5) Lymphocytes # 1.2 10^3/ul (0.8-2.9) Monocytes # 0.8 10^3/ul (0.3-0.9) Eosinophils # 0.0 10^3/ul (0.0-0.5) Basophils # 0.0 10^3/ul (0.0-0.1) Nucleated Red Blood 0.0 Cells # 10^3/ul (0.0-0.0) Prothrombin Time 14.0 Sec (11.9-14.9) Prothrombin Time 1.1 Ratio INR International 1.07 Normalized Ratio Sodium Level 142 mmol/L (135-144) Potassium Level 4.6 mmol/L (3.5-5.1) Chloride Level 112 mmol/L (97-110) Carbon Dioxide 23 mmol/L (21-31) Level Anion Gap 7 (5-13) Blood Urea 13 mg/dl (7-20) Nitrogen Creatinine 0.64 mg/dl (0.44-1.00) Est Glomerular > 60 mL/min (>60) Filtrat Rate mL/min Glucose Level 146 mg/dl (70-220) Hemoglobin A1c 5.7 % (0-5.9) Calcium Level 8.8 mg/dl (8.4-10.2) Triglycerides 119 mg/dl (0-149) Level Cholesterol Level 212 mg/dl (100-200) LDL Cholesterol, 136 mg/dl Calculated HDL Cholesterol 52 mg/dl (35-98) Cholesterol/HDL 4.0 RATIO Ratio Urine Color STRAW (YELLOW) Urine Clarity CLEAR (CLEAR) Urine pH 5.0 (5.0-9.0) Urine Specific 1.009 (1.003-1.030 [place] ) Urine Ketones NEGATIVE mg/dL (NEGATIVE) Urine Nitrite NEGATIVE mg/dL (NEGATIVE) Urine Bilirubin NEGATIVE mg/dL (NEGATIVE) Urine Urobilinogen NEGATIVE mg/dL (NEGATIVE) Urine Leukocyte NEGATIVE Opal/ul Esterase Urine Hemoglobin NEGATIVE mg/dL (NEGATIVE) Urine Glucose 2+ mg/dL (NEGATIVE) Urine Total NEGATIVE Protein mg/dl (NEGATIVE) Lab Scanned Report [facility] [id number] KAYLENE BROWN MD Nov 29, 2018 07:51
[2018-11-29] MEDS: ASPIRIN (EC) 81 MG TAB PO SCH ×2 (09:04→20:28)
[2018-11-29] MEDS: DOCUSATE SODIUM 100 MG CAP PO SCH ×2 (09:04→20:28)
[2018-11-29] MEDS: KETOROLAC 15 MG INJ IV PRN ×2 (09:08→15:31)
[2018-11-29] MEDS: LACTATED RINGER'S 1,000 ML IV SCH ×2 (12:00→20:37)
[2018-11-29] MEDS ORDERED: ONDANSETRON 4 MG INJ IV PRN (13:00)
--- NOTE | 2018-11-29 13:45 | CONS ---
Assessment/Plan Assessment/Plan Hospital Course (Demo Recall) SUBJECTIVE: Status post right hip revision surgery. POD#1 No acute distress. OBJECTIVE: Vital signs-see below PHYSICAL EXAM: Constitutional: Adequately built,not in acute distress. HEENT: Head atraumatic and normocephalic. Eyes: Extraocular muscles intact. Anicteric sclerae. Pupils equal bilaterally, reactive to light. NECK: Supple without lymph node. CHEST: Clear and good breath sounds equally. No wheezing. No rhonchi. HEART: S1, S2. Regular rate and rhythm. ABDOMEN: Soft/non tender with no rebound tenderness. Bowel sounds were present. EXTREMITIES: Intact postop dressing on right hip. No bruising/hematoma noted. Pulses palpable. No cyanosis, clubbing or edema. NEUROLOGIC: Alert and oriented x3. No focal deficit. No sensory deficit. PSYCHOSOCIAL: No signs of depression. INTEGUMENTARY: No open wounds. ASSESSMENT AND PLAN:58 yo F admitted followed by revision right hip replacement. Status post revision right hip replacement 11/28/18 DVT ppx/Pain control/PT Dyslipidemia -Resume statin DVT prophylaxis: Aspirin twice a day per orthopedic PUD prophylaxis: PPI As per orthopedic note, plan for discharge home with home health. Agree with plan and patient to follow-up with primary care physician and orthopedic surgeon after discharge. Patient was seen in collaboration with Dr. Edouard. Consultation Date/Type/Reason Admit Date/Time Nov 28, 2018 at 13:08 Initial Consult Date Type of Consult Hospitalist medicine Reason for Consultation post op medical management Requesting Provider: KAYLENE BROWN MD Date/Time of Note DATE: 11/29/18 TIME: 13:43 Exam/Review of Systems Exam Vitals Vital Signs Date Temp Pulse Resp B/P (MAP) Pulse Ox O2 O2 Flow FiO2 Time Delivery Rate 11/29/18 98.2 69 18 109/56 97 Room Air 07:45 (73) 11/28/18 2.0 18:30 Intake and Output 11/28/18 11/28/18 11/29/18 1515:00 23:00 07:00 IntakeIntake Total 3300 ml 530 ml 690 ml OutputOutput Total 850 ml 600 ml BalanceBalance 2450 ml 530 ml 90 ml Results Result Diagram: 11/29/1843911/29/18439 Results 24hrs Laboratory Tests Test 11/29/18 04:40 11/29/18 06:00 11/29/18 07:19 White Blood Count 14.0 H Red Blood Count 3.54 L Hemoglobin 10.3 L Hematocrit 31.6 L Mean Corpuscular Volume 89.3 Mean Corpuscular Hemoglobin 29.1 Mean Corpuscular Hemoglobin Concent 32.6 Red Cell Distribution Width 12.9 Platelet Count 162 Mean Platelet Volume 10.6 H Immature Granulocytes % 0.600 H Neutrophils % 84.8 H Lymphocytes % 8.6 L Monocytes % 5.9 Eosinophils % 0.0 Basophils % 0.1 Nucleated Red Blood Cells % 0.0 Immature Granulocytes # 0.080 H Neutrophils # 11.9 H Lymphocytes # 1.2 Monocytes # 0.8 Eosinophils # 0.0 Basophils # 0.0 Nucleated Red Blood Cells # 0.0 Prothrombin Time 14.0 Prothrombin Time Ratio 1.1 INR International Normalized Ratio 1.07 Sodium Level 142 Potassium Level 4.6 Chloride Level 112 H Carbon Dioxide Level 23 Anion Gap 7 Blood Urea Nitrogen 13 Creatinine 0.64 Est Glomerular Filtrat Rate mL/min > 60 Glucose Level 146 Hemoglobin A1c 5.7 Calcium Level 8.8 Triglycerides Level 119 Cholesterol Level 212 H LDL Cholesterol, Calculated 136 HDL Cholesterol 52 Cholesterol/HDL Ratio 4.0 Urine Color STRAW Urine Clarity CLEAR Urine pH 5.0 Urine Specific [place] 1.009 Urine Ketones NEGATIVE Urine Nitrite NEGATIVE Urine Bilirubin NEGATIVE Urine Urobilinogen NEGATIVE Urine Leukocyte Esterase NEGATIVE Urine Hemoglobin NEGATIVE Urine Glucose 2+ H Urine Total Protein NEGATIVE Lab Scanned Report [facility] Medications Medication Current Medications Lactated Ringer's 1,000 ml @ 80 mls/hr [id number] IV Last administered on 11/28/18at 20:45; Admin Dose 80 MLS/HR; Start 11/28/18 at 12:35 Oxycodone HCl (Roxicodone) 15 mg Q4H PRN PO .PAIN; Start 11/28/18 at 13:00 Oxycodone HCl (Roxicodone) 10 mg Q4H PRN PO .PAIN; Start 11/28/18 at 13:00 Oxycodone HCl (Roxicodone) 5 mg Q4H PRN PO .PAIN; Start 11/28/18 at 13:00 Hydromorphone HCl (Dilaudid) 1 mg Q3H PRN IV .BREAKTHROUGH PAIN; Start 11/28/18 at 13:00 Acetaminophen (Tylenol Tab) 1,000 mg Q8 PO Last administered on 11/29/18at 05:05; Admin Dose 1,000 MG; Start 11/28/18 at 14:00 Ondansetron HCl (Zofran Inj) 4 mg Q4H PRN IV NAUSEA/VOMITING; Start 11/29/18 at 13:00 Gabapentin (Neurontin) 300 mg QHS PO Last administered on 11/28/18at 20:44; Admin Dose 300 MG; Start 11/28/18 at 21:00 Pantoprazole (Protonix Tab) 40 mg DAILY@06 PO Last administered on 11/29/18at 05:05; Admin Dose 40 MG; Start 11/29/18 at 06:00 Docusate Sodium (Colace) 200 mg BID PO Last administered on 11/29/18at 09:04; Admin Dose 200 MG; Start 11/29/18 at 09:00; Stop 12/01/18 at 21:01 Simethicone (Mylicon) 80 mg TID PRN PO .GAS; Start 11/28/18 at 13:00 Senna/Docusate Sodium (Senokot-S) 2 tab BID PRN PO .CONSTIPATION; Start 11/28/18 at 13:00 Magnesium Hydroxide (Milk Of Mag) 30 ml HS PRN PO .CONSTIPATION; Start 11/28/18 at 13:00 Bisacodyl (Dulcolax Supp) 10 mg DAILY PRN [place] .CONSTIPATION; Start 11/28/18 at 13:00 Sodium Biphosphate/ Sodium Phosphate (Fleet Enema) 133 ml DAILY PRN [place] .CONSTIPATION; Start 11/28/18 at 13:00 Diphenhydramine HCl (Benadryl) 25 mg Q4H PRN IV .ITCHING; Start 11/28/18 at 13: 00 Ketorolac Tromethamine (Toradol) 15 mg Q6H PRN IV .PAIN Last administered on 11/29/18at 09:08; Admin Dose 15 MG; Start 11/28/18 at 13:00 Naloxone HCl (Narcan) 0.2 mg Q2M PRN IV .RESP RATE; Start 11/28/18 at 13:00 IV Flush (NS 3 ml) 3 ml per protocol IV ; Start 11/28/18 at 13:00 Bethanechol Chloride (Urecholine) 25 mg URINARY CATH D/C PRN PO UNABLE TO VOID; Start 11/28/18 at 13:00 Aspirin (Halfprin) 81 mg BID PO Last administered on 11/29/18at 09:04; Admin Dose 81 MG; Start 11/29/18 at 09:00 BEKAH ARNOLD NP Nov 29, 2018 13:45
[2018-11-29] MEDS ORDERED: SOD CHLORIDE 0.9% 250 ML IV ONE (15:30)
[2018-11-29] MEDS: GABAPENTIN 300 MG CAP PO SCH (20:28)
[2018-11-29] MEDS ORDERED: ATORVASTATIN 20 MG TAB PO SCH (21:00)
[2018-11-30 01:49] VITALS: BP 107/53; PULSE 73; RESP 18
[2018-11-30] MEDS: PANTOPRAZOLE (EC) 40 MG TAB PO SCH (06:57)
[2018-11-30] MEDS: ACETAMINOPHEN 500 MG TAB PO SCH ×2 (06:57→14:12)
[2018-11-30 07:36] VITALS: BP 128/70; PULSE 70; RESP 18
[2018-11-30] MEDS: DOCUSATE SODIUM 100 MG CAP PO SCH (09:04)
[2018-11-30] MEDS: ASPIRIN (EC) 81 MG TAB PO SCH (09:04)
[2018-11-30] MEDS: KETOROLAC 15 MG INJ IV PRN (09:07)
--- NOTE | 2018-11-30 12:15 | CONS ---
Assessment/Plan Assessment/Plan Hospital Course (Demo Recall) SUBJECTIVE: POD#2. No further dizziness reported. Tolerating physical therapy. No acute distress. OBJECTIVE: Vital signs-see below PHYSICAL EXAM: Constitutional: Adequately built,not in acute distress. HEENT: Head atraumatic and normocephalic. Eyes: Extraocular muscles intact. Anicteric sclerae. Pupils equal bilaterally, reactive to light. NECK: Supple without lymph node. CHEST: Clear and good breath sounds equally. No wheezing. No rhonchi. HEART: S1, S2. Regular rate and rhythm. ABDOMEN: Soft/non tender with no rebound tenderness. Bowel sounds were present. EXTREMITIES: Intact postop dressing on right hip. No bruising/hematoma noted. Pulses palpable. No cyanosis, clubbing or edema. NEUROLOGIC: Alert and oriented x3. No focal deficit. No sensory deficit. PSYCHOSOCIAL: No signs of depression. INTEGUMENTARY: No open wounds. ASSESSMENT AND PLAN:58 yo F admitted followed by revision right hip replacement. Status post revision right hip replacement 11/28/18 DVT ppx/Pain control/PT Dyslipidemia -on statin Dizziness, likely volume depletion secondary to surgery -Improved after fluid bolus. DVT prophylaxis: Aspirin twice a day per orthopedic PUD prophylaxis: PPI Medically stable for discharge once cleared from orthopedic standpoint. Patient was seen in collaboration with Dr. Edouard. Consultation Date/Type/Reason Admit Date/Time Nov 28, 2018 at 13:08 Initial Consult Date Type of Consult Hospitalist medicine Requesting Provider: KAYLENE BROWN MD Date/Time of Note DATE: 11/30/18 TIME: 12:14 Exam/Review of Systems Exam Vitals Vital Signs Date Temp Pulse Resp B/P (MAP) Pulse Ox O2 O2 Flow FiO2 Time Delivery Rate 11/30/18 98.0 70 18 128/70 98 Room Air 07:36 (89) 11/28/18 2.0 18:30 Intake and Output 11/29/18 11/29/18 11/30/18 1515:00 23:00 07:00 IntakeIntake Total 960 ml 490 ml BalanceBalance 960 ml 490 ml Results Result Diagram: 11/30/18 0429 11/30/18 0429 Results 24hrs Laboratory Tests Test 11/30/18 04:29 White Blood Count 10.7 # Red Blood Count 3.13 L Hemoglobin 9.0 L Hematocrit 28.7 L Mean Corpuscular Volume 91.7 Mean Corpuscular Hemoglobin 28.8 L Mean Corpuscular Hemoglobin Concent 31.4 L Red Cell Distribution Width 13.5 Platelet Count 147 Mean Platelet Volume 10.9 H Immature Granulocytes % 0.400 Neutrophils % 65.2 Lymphocytes % 26.6 Monocytes % 6.8 Eosinophils % 0.8 Basophils % 0.2 Nucleated Red Blood Cells % 0.0 Immature Granulocytes # 0.040 H Neutrophils # 7.0 Lymphocytes # 2.8 Monocytes # 0.7 Eosinophils # 0.1 Basophils # 0.0 Nucleated Red Blood Cells # 0.0 Prothrombin Time 13.5 Prothrombin Time Ratio 1.1 INR International Normalized Ratio 1.02 Sodium Level 141 Potassium Level 4.3 Chloride Level 111 H Carbon Dioxide Level 28 Anion Gap 2 L Blood Urea Nitrogen 17 Creatinine 0.67 Est Glomerular Filtrat Rate mL/min > 60 Glucose Level 110 Calcium Level 8.5 Medications Medication Current Medications Lactated Ringer's 1,000 ml @ 80 mls/hr [id number] IV Last administered on 11/28/18at 20:45; Admin Dose 80 MLS/HR; Start 11/28/18 at 12:35 Oxycodone HCl (Roxicodone) 15 mg Q4H PRN PO .PAIN; Start 11/28/18 at 13:00 Oxycodone HCl (Roxicodone) 10 mg Q4H PRN PO .PAIN; Start 11/28/18 at 13:00 Oxycodone HCl (Roxicodone) 5 mg Q4H PRN PO .PAIN; Start 11/28/18 at 13:00 Hydromorphone HCl (Dilaudid) 1 mg Q3H PRN IV .BREAKTHROUGH PAIN; Start 11/28/18 at 13:00 Acetaminophen (Tylenol Tab) 1,000 mg Q8 PO Last administered on 11/30/18at 06:57; Admin Dose 1,000 MG; Start 11/28/18 at 14:00 Ondansetron HCl (Zofran Inj) 4 mg Q4H PRN IV NAUSEA/VOMITING; Start 11/29/18 at 13:00 Gabapentin (Neurontin) 300 mg QHS PO Last administered on 11/29/18at 20:28; Admin Dose 300 MG; Start 11/28/18 at 21:00 Pantoprazole (Protonix Tab) 40 mg DAILY@06 PO Last administered on 11/30/18at 06:57; Admin Dose 40 MG; Start 11/29/18 at 06:00 Docusate Sodium (Colace) 200 mg BID PO Last administered on 11/30/18at 09:04; Admin Dose 200 MG; Start 11/29/18 at 09:00; Stop 12/01/18 at 21:01 Simethicone (Mylicon) 80 mg TID PRN PO .GAS; Start 11/28/18 at 13:00 Senna/Docusate Sodium (Senokot-S) 2 tab BID PRN PO .CONSTIPATION; Start 11/28/18 at 13:00 Magnesium Hydroxide (Milk Of Mag) 30 ml HS PRN PO .CONSTIPATION; Start 11/28/18 at 13:00 Bisacodyl (Dulcolax Supp) 10 mg DAILY PRN [place] .CONSTIPATION; Start 11/28/18 at 13:00 Sodium Biphosphate/ Sodium Phosphate (Fleet Enema) 133 ml DAILY PRN [place] .CONSTIPATION; Start 11/28/18 at 13:00 Diphenhydramine HCl (Benadryl) 25 mg Q4H PRN IV .ITCHING; Start 11/28/18 at 13:00 Ketorolac Tromethamine (Toradol) 15 mg Q6H PRN IV .PAIN Last administered on 11/30/18at 09:07; Admin Dose 15 MG; Start 11/28/18 at 13:00 Naloxone HCl (Narcan) 0.2 mg Q2M PRN IV .RESP RATE; Start 11/28/18 at 13:00 IV Flush (NS 3 ml) 3 ml per protocol IV ; Start 11/28/18 at 13:00 Bethanechol Chloride (Urecholine) 25 mg URINARY CATH D/C PRN PO UNABLE TO VOID; Start 11/28/18 at 13:00 Aspirin (Halfprin) 81 mg BID PO Last administered on 11/30/18at 09:04; Admin Dose 81 MG; Start 11/29/18 at 09:00 Atorvastatin Calcium (Lipitor) 20 mg HS PO Last administered on 11/29/18at 20:28; Admin Dose 20 MG; Start 11/29/18 at 21:00 BEKAH ARNOLD NP Nov 30, 2018 12:15
--- NOTE | 2018-11-30 14:16 | PN ---
Date/Time of Note Date/Time of Note DATE: 11/30/18 TIME: 14:14 Assessment/Plan Lines/Catheters IV Catheter Type (from Nrsg): Saline Lock Crooks in Place (from Nrsg): No Assessment/Plan Chief Complaint/Hosp Course POD#2 s/p revision right CASIMIRO head and liner exchange. Patient's pain is well controlled. Patient is medically and surgically stable. She is tolerating diet. She did well with therapy today. -Intraoperative cultures pending, negative to date -Post op H&H stable -PT/OT. Posterior Hip Precautions -Joints pain control protocol. Nonnarcotic pain medication prior to any narcotic pain medication -DVT prophylaxis: SCD's, ASA 81 mg twice daily x6 weeks -Weight bearing status: as tolerated -Diet: ADAT -Crooks: Discontinue -Discharge planning consult Planned Discharge Date: Today Discharge to home with home health Subjective 24 Hr Interval Summary Patient doing well No acute events overnight Pain is well controlled Exam/Review of Systems Vital Signs Vitals Vital Signs Date Temp Pulse Resp B/P (MAP) Pulse Ox O2 O2 Flow FiO2 Time Delivery Rate 11/30/18 98.0 70 18 128/70 98 Room Air 07:36 (89) 11/28/18 2.0 18:30 Intake and Output 11/29/18 11/29/18 11/30/18 1515:00 23:00 07:00 IntakeIntake Total 960 ml 490 ml BalanceBalance 960 ml 490 ml Exam Free Text/Dictation Right lower extremity: Dressing: clean, dry, and intact, no erythema Sensation is decreased to light touch along the superficial peroneal nerve distribution which is the patient's baseline prior to surgery. Sensation intact to light touch in a sural, saphenous, deep peroneal, medial and lateral plantar nerve distribution. Motor is intact, patient able to dorsiflex and plantarflex ankle and extend and flex great toe. Dorsalis Pedis pulse +2, Brisk capillary refill. Compartments are soft. Calves non-tender to palpation bilaterally. Results Result Diagram: 11/30/18 0429 11/30/18 042 KAYLENE BROWN MD Nov 30, 2018 14:16
[2018-11-30 14:28] VITALS: BP 131/76; PULSE 82; RESP 19
[2018-11-30] MEDS: LACTATED RINGER'S 1,000 ML IV SCH (14:35)
== END 2018-11-30 16:45 | disposition home health service (06) | DRG 468 ==
LOC: REC 11-28 05:39 → INTOOBSV 11-28 05:39 → OBSVTOIN 11-28 13:08 → MS1 11-28 14:33
PROVIDERS: ADMIT Orthopaedic Surgery Adult Reconstructive Orthopaedic Surgery; ATTEND Orthopaedic Surgery Adult Reconstructive Orthopaedic Surgery
PROC: 0SPR0JZ Removal of Synthetic Substitute from Right Hip Joint, Femoral Surface, Open Approach (ICD-10-PCS; 2018-11-28)
PROC: 0SP909Z Removal of Liner from Right Hip Joint, Open Approach (ICD-10-PCS; 2018-11-28)
PROC: 0SUA09Z Supplement Right Hip Joint, Acetabular Surface with Liner, Open Approach (ICD-10-PCS; 2018-11-28)
PROC: 0SRR03Z Replacement of Right Hip Joint, Femoral Surface with Ceramic Synthetic Substitute, Open Approach (ICD-10-PCS; principal; 2018-11-28 07:30)
DX: T84.060A Wear of articular bearing surface of internal prosthetic right hip joint, initial encounter (principal); E78.5 Hyperlipidemia, unspecified; R42 Dizziness and giddiness; Y83.8 Other surgical procedures as the cause of abnormal reaction of the patient, or of later complication, without mention of misadventure at the time of the procedure
CPT/HCPCS: 72170; 73500; 73530; 80048; 80061; 81003; 83036; 85025; 85610; 86850; 86900; 86901; 86920; 87070; 87075; 87081; 87086; 87102; 87116; 88300; 89060; 97110; 97116; 97162; 97165; 97530; 97535; 99217; G0378; J0131; J0171; J0690; J0735; J1100; J1885; J2250; J2274; J2370; J2405; J2765; J2795; J3010; J7040; J7120